=== PATIENT | male | born 1945 | race Caucasian/White ===

== ENCOUNTER 2017-12-24 06:33 | Day surgery (SDC) | payer OTHER, MEDICARE ==
[~2017-12-24 06:33] MED LIST: KETOROLAC TROMETHAMINE 0.45% 4 DROP/0.4 ML DROPERETTE OS PRN
[2017-12-24] MEDS: CYCLOPENTOLATE 0.2%/PHENYLEPHRINE 1% OPH SOLN 2 ML OS PRN ×3 (07:00→07:13)
[2017-12-24] MEDS: BESIFLOXACIN HCL 0.6% OPH SUSP 5 ML BOTTLE OS PRN ×4 (07:00→07:52)
[2017-12-24] MEDS: TROPICAMIDE 1% OPH SOLN 3 ML OS PRN ×3 (07:00→07:13)
[2017-12-24] MEDS: TETRACAINE HCL 0.5% OPH SOLN 2 ML OS PRN ×3 (07:00→07:32)
[2017-12-24] MEDS ORDERED: MIDAZOLAM 2 MG/2 ML INJ ONE (07:13)
[2017-12-24] MEDS: LIDOCAINE 1% INJ-PF (10 MG/ML) 30 ML SDV ONE ×2 (07:42)
[2017-12-24] MEDS: EPINEPHRINE INJ/PF 1 MG/1 ML AMPULE ONE ×2 (07:42)
[2017-12-24] MEDS: CHONDR SU A NA/HYALUR INTRAOC KIT (SURGICARE) ONE ×2 (07:43)
--- NOTE | 2017-12-24 16:26 | [facility] OPERATIVE REPORT E ---
[facility] Operative Report NAME: PILAR BINGHAM AGE: 72Y DATE OF SURGERY: 12/24/2017 ROOM: PREOPERATIVE DIAGNOSIS: CATARACT, LEFT EYE. POSTOPERATIVE DIAGNOSIS: CATARACT, LEFT EYE. OPERATION: Cataract extraction with insertion of an IOL of the left eye. SURGEON: ALEXANDRE HILL M.D. ANESTHESIA: Topical. PROCEDURE: After obtaining appropriate consent, the patient's left eye was prepped and draped in sterile fashion as well as the surgeon in a sterile manner and cataract surgery was started. First a paracentesis blade was used to make a side-port incision. Viscoelastic was used to inflate the anterior chamber. Next a 2.4 mm incision was made with a 2.4 mm blade, clear corneal temporally. A continuous capsulorrhexis was made using a cystotome and Utrata forceps. Following this hydrodissection was carried out to make the lens fully loose and mobile and it was rotated 90 degrees. Following this, a iiwzhb-zti-jfhomcs technique was used to phacoemulsify the lens with a CDE of 5.87. The remaining cortex was removed with irrigation/aspiration. Provisc was instilled into the capsular bag to inflate the bag. A SN60WF, 15.5 diopter lens was placed. The remaining viscoelastic material was removed with irrigation/aspiration. Following this, the incision was found to be watertight. Besivance was instilled into the eye and a protective shield was placed over the eye. The patient returned to the postoperative recovery in stable condition. DICTATING PHYSICIAN: ALEXANDRE HILL M.D. [id number] PHY#: [id number] ID: [id number] JOB#: [id number] ACCT: [id number] cc:ALEXANDRE HILL M.D. >
--- NOTE | 2017-12-24 16:26 | [facility] DISCHARGE SUMMARY E ---
[facility] Discharge Summary NAME: PILAR BINGHAM AGE: 72Y ADMITTED: 12/24/2017 DISCHARGED: 12/24/2017 HOSPITAL COURSE: This is a 72-year-old male who underwent cataract extraction of the left eye. DIAGNOSIS: CATARACT, LEFT EYE. He underwent surgery because he was having difficulty seeing road signs and words on the television. DISCHARGE INSTRUCTIONS: He should be on a regular diet. No bending at his waist, no heavy lifting. He should use his Besivance, Ilevro, and Durezol at 3 p.m. and 8 p.m. and sleep with a rigid shield. I will see him for his 1 day postoperative tomorrow. DICTATING PHYSICIAN: ALEXANDRE HILL M.D. [id number] PHY#: [id number] ID: [id number] JOB#: [id number] ACCT: [id number] cc:ALEXANDRE HILL M.D. >
== END 2017-12-24 08:34 | disposition home or self-care (01) ==
LOC: SC 06:33
PROVIDERS: ATTEND Internal Medicine
DX: H25.813 Combined forms of age-related cataract, bilateral (principal); H40.1132 Primary open-angle glaucoma, bilateral, moderate stage; E11.9 Type 2 diabetes mellitus without complications; M19.90 Unspecified osteoarthritis, unspecified site; I51.9 Heart disease, unspecified; Z79.84 Long term (current) use of oral hypoglycemic drugs; Z79.82 Long term (current) use of aspirin; Z95.0 Presence of cardiac pacemaker
CPT/HCPCS: 66984; 82962; V2632; J2250; J3490 ×2; J0171; 142

== ENCOUNTER 2018-01-14 10:04 | Day surgery (SDC) | payer OTHER, MEDICARE ==
[~2018-01-14 10:04] MED LIST changes: +KETOROLAC TROMETHAMINE 0.45% 4 DROP/0.4 ML DROPERETTE OD PRN; -KETOROLAC TROMETHAMINE 0.45% 4 DROP/0.4 ML DROPERETTE OS PRN; +MIDAZOLAM 2 MG/2 ML INJ ONE
[2018-01-14] MEDS ORDERED: LIDOCAINE 1% INJ-PF (10 MG/ML) 30 ML SDV ONE (10:26)
[2018-01-14] MEDS ORDERED: EPINEPHRINE INJ/PF 1 MG/1 ML AMPULE ONE (10:26)
[2018-01-14] MEDS ORDERED: CHONDR SU A NA/HYALUR INTRAOC KIT (SURGICARE) ONE (10:26)
[2018-01-14] MEDS: TROPICAMIDE 1% OPH SOLN 3 ML OD PRN ×3 (10:54→11:14)
[2018-01-14] MEDS: BESIFLOXACIN HCL 0.6% OPH SUSP 5 ML BOTTLE OD PRN ×4 (10:54→11:53)
[2018-01-14] MEDS: CYCLOPENTOLATE 0.2%/PHENYLEPHRINE 1% OPH SOLN 2 ML OD PRN ×3 (10:54→11:14)
[2018-01-14] MEDS: TETRACAINE HCL 0.5% OPH SOLN 2 ML OD PRN ×3 (10:55→11:33)
--- NOTE | 2018-01-14 20:05 | [facility] DISCHARGE SUMMARY E ---
[facility] Discharge Summary NAME: PILAR BINGHAM AGE: 72Y ADMITTED: 01/14/2018 DISCHARGED: 01/14/2018 HOSPITAL COURSE: This is a 72-year-old male who underwent cataract extraction of the right eye. DIAGNOSIS: CATARACT, RIGHT EYE. He underwent surgery because he was having difficulty seeing words on the television. DISCHARGE INSTRUCTIONS: He should be on a regular diet. No bending at his waist, no heavy lifting. He should use his Besivance, Ilevro, and Durezol at 3 p.m. and 8 p.m. and sleep with a rigid shield. I will see him for his 1 day postoperative tomorrow. DICTATING PHYSICIAN: ALEXANDRE HILL M.D. [id number] PHY#: [id number] ID: [id number] JOB#: [id number] ACCT: [id number] cc:ALEXANDRE HILL M.D. >
--- NOTE | 2018-01-14 20:05 | [facility] OPERATIVE REPORT E ---
[facility] Operative Report NAME: PILAR BINGHAM AGE: 72Y DATE OF SURGERY: 01/14/2018 ROOM: PREOPERATIVE DIAGNOSIS: CATARACT, RIGHT EYE. POSTOPERATIVE DIAGNOSIS: CATARACT, RIGHT EYE. OPERATION: Cataract extraction with insertion of an IOL of the right eye. SURGEON: ALEXANDRE HILL M.D. ANESTHESIA: Topical. PROCEDURE: After obtaining appropriate consent, the patient's right eye was prepped and draped in sterile fashion as well as the surgeon in a sterile manner and cataract surgery was started. First a paracentesis blade was used to make a side-port incision. Viscoelastic was used to inflate the anterior chamber. Next a 2.4 mm incision was made with a 2.4 mm blade, clear corneal temporally. A continuous capsulorrhexis was made using a cystotome and Utrata forceps. Following this hydrodissection was carried out to make the lens fully loose and mobile and it was rotated 90 degrees. Following this, a pizngo-bgp-qdmxnta technique was used to phacoemulsify the lens with a CDE of 14.90. The remaining cortex was removed with irrigation/aspiration. Provisc was instilled into the capsular bag to inflate the bag. A SN60WF, 15.5 diopter lens was placed. The remaining viscoelastic material was removed with irrigation/aspiration. Following this, the incision was found to be watertight. Besivance was instilled into the eye and a protective shield was placed over the eye. The patient returned to the postoperative recovery in stable condition. DICTATING PHYSICIAN: ALEXANDRE HILL M.D. [id number] PHY#: [id number] ID: [id number] JOB#: [id number] ACCT: [id number] cc:ALEXANDRE HILL M.D. >
== END 2018-01-14 12:40 | disposition home or self-care (01) ==
LOC: SC 10:04
PROVIDERS: ATTEND Internal Medicine
DX: H25.811 Combined forms of age-related cataract, right eye (principal); Z96.1 Presence of intraocular lens; H40.1132 Primary open-angle glaucoma, bilateral, moderate stage; E11.9 Type 2 diabetes mellitus without complications; Z79.84 Long term (current) use of oral hypoglycemic drugs; Z79.899 Other long term (current) drug therapy; Z79.82 Long term (current) use of aspirin; Z95.0 Presence of cardiac pacemaker
CPT/HCPCS: 66984; 82962; V2632; J2250; J3490 ×2; J0171; 142

== ENCOUNTER 2020-01-07 19:47 | Emergency (ER) | payer OTHER, MEDICARE ==
--- NOTE | 2020-01-07 20:11 | ER Document Report ---
ED Medical Screen (RME) - General Chief Complaint: Head Injury without LOC Stated Complaint: HEAD INJURY Time Seen by Provider: 01/07/20 20:03 Primary Care Provider: DYAN CRONIN MD [Primary Care Provider] - Follow up as needed Mode of Arrival: Wheelchair Information source: Patient Notes: 74-year-old male presented to ED for complaint of pain to the face both knees left hand and fifth toe on the left foot. He states he was temporarily started about 6 PM when he fell landing face first on the driveway. He states he has fallen before face forward when he was carried out across the yard. He is alert oriented respirations regular nonlabored. He does state he has a pacemaker history of diabetes PTSD. He was unsure the rest of his medical history. He denies loss of consciousness. I have greeted and performed a rapid initial assessment of this patient. A comprehensive ED assessment and evaluation of the patient, analysis of test results and completion of medical decision making process will be conducted by an additional ED providers. TRAVEL OUTSIDE OF THE [place] IN LAST 30 DAYS: No - Related Data Allergies/Adverse Reactions: No Known Allergies Allergy (Verified 01/07/20 20:07) Past Medical History - Past Medical History Cardiac Medical History: Reports: None Pulmonary Medical History: Reports: None EENT Medical History: Reports: None Neurological Medical History: Reports: None Endocrine Medical History: Reports: Hx Diabetes Mellitus Type 2 Renal/ Medical History: Reports: None GI Medical History: Reports: None Musculoskeltal Medical History: Reports Hx Arthritis, Reports Hx Musculoskeletal Trauma Skin Medical History: Reports None Psychiatric Medical History: Reports: Hx Depression, Hx Post Traumatic Stress Disorder Traumatic Medical History: Reports: Hx Fractures Infectious Medical History: Reports: None Past Surgical History: Reports: Hx Pacemaker, Hx Tonsillectomy - Immunizations Hx Diphtheria, Pertussis, Tetanus Vaccination: Yes Physical Exam - Vital signs Vitals: Temp Pulse Resp BP Pulse Ox 97.3 F 70 16 111/57 L 97 01/07/20 19:54 01/07/20 19:54 01/07/20 19:54 01/07/20 19:54 01/07/20 19:54 Course - Vital Signs Vital signs: Temp Pulse Resp BP Pulse Ox 97.3 F 70 16 111/57 L 97 01/07/20 19:54 01/07/20 19:54 01/07/20 19:54 01/07/20 19:54 01/07/20 19:54 Doctor's Discharge - Discharge Referrals: DYAN CRONIN MD [Primary Care Provider] - Follow up as needed
--- NOTE | 2020-01-07 20:46 | RADIOLOGY REPORT (SQ) ---
CT BRAIN AND CERVICAL SPINE HISTORY: Trauma. COMPARISON: 04/20/2015 TECHNIQUE: CT scan of the brain and cervical spine was performed without IV contrast. This exam was performed according to our departmental dose-optimization program, which includes automated exposure control, adjustment of the mA and/or kV according to patient size and/or use of iterative reconstruction technique. FINDINGS: BRAIN: There are scattered areas of hypoattenuation within the periventricular white matter, which likely represent chronic microvascular ischemia. No evidence of acute infarction, intracranial hemorrhage, extra-axial fluid collection, or midline shift. No air-fluid levels are seen in the paranasal sinuses to suggest acute sinusitis. No depressed skull fracture. CERVICAL SPINE: No acute cervical fracture or prevertebral soft tissue swelling. There is straightening of the normal cervical lordosis, which may be due to cervical collar, muscle spasm, or patient positioning. There is mild multilevel degenerative disc disease as well as facet DJD throughout the cervical spine. The spinal canal is poorly visualized IMPRESSION: 1. No acute intracranial hemorrhage. 2. No acute fracture or subluxation of the cervical spine.
--- NOTE | 2020-01-07 20:54 | RADIOLOGY REPORT (SQ) ---
CLINICAL INDICATION: fall landed on driveway pain left 5th toe. . TECHNIQUE: 3 view(s) obtained of the left. COMPARISON: None. FINDINGS: No acute displaced fracture is identified. Alignment appears anatomic. Joint spaces are within normal limits for age. Soft tissue swelling. IMPRESSION: No acute displaced fracture is identified.
--- NOTE | 2020-01-07 20:55 | RADIOLOGY REPORT (SQ) ---
CLINICAL INDICATION: fall landed on driveway pain left hand. . TECHNIQUE: 3 view(s) were obtained of the left hand. COMPARISON: April 20, 2015. FINDINGS: No acute displaced fracture is identified of the hand. Alignment appears anatomic. Osteoarthritis most prominent base of first metacarpal.. Soft tissue swelling. IMPRESSION: No evidence of acute bony injury to the hand. Osteoarthritis
--- NOTE | 2020-01-07 20:59 | RADIOLOGY REPORT (SQ) ---
CLINICAL INDICATION: fall landed on driveway pain bilateral knee. . TECHNIQUE: 4 view(s) were obtained of the left knee. COMPARISON: None. FINDINGS: No acute displaced fracture is identified of the knee. Alignment appears anatomic. Joint spaces are within normal limits for age. No significant joint effusion. Soft tissue swelling. Vascular calcification. IMPRESSION: No evidence of acute displaced fracture of the knee.
--- NOTE | 2020-01-07 21:00 | RADIOLOGY REPORT (SQ) ---
CLINICAL INDICATION: fall landed on driveway pain bilateral knee. . TECHNIQUE: 4 view(s) were obtained of the right knee. COMPARISON: None. FINDINGS: No acute displaced fracture is identified of the knee. Alignment appears anatomic. Joint spaces are within normal limits for age. No significant joint effusion. Soft tissue swelling. Vascular calcification. IMPRESSION: No evidence of acute displaced fracture of the knee.
[2020-01-08 00:33] LABS: ABSOLUTE BASOPHILS # (AUTO) 0.1 10^3/uL (0.0-0.2); ABSOLUTE EOSINOPHILS # (AUTO) 0.2 10^3/uL (0.0-0.6); ABSOLUTE LYMPHOCYTES (AUTO) 1.6 10^3/uL (0.5-4.7); ABSOLUTE MONOCYTES (AUTO) 0.5 10^3/uL (0.1-1.4); ABSOLUTE NEUT (AUTO) 4.3 10^3/uL (1.7-8.2); BASOPHILS % (AUTO) 0.8 % (0-2); EOSINOPHILS % (AUTO) 2.3 % (0-6); HEMATOCRIT 39.9 % (37.9-51.0); HEMOGLOBIN 13.7 g/dL (13.5-17.0); LYMPHOCYTES % (AUTO) 23.7 % (13-45); MEAN CORPUSCULAR HEMOGLOBIN 31.4 pg (27.0-33.4); MEAN CORPUSCULAR HGB CONC 34.2 g/dL (32.0-36.0); MEAN CORPUSCULAR VOLUME 92 fl (80-97); MONOCYTES % (AUTO) 7.5 % (3-13); PLATELET COUNT 159 10^3/uL (150-450); RED BLOOD COUNT 4.36 10^6/uL (4.35-5.55); RED CELL DISTRIBUTION WIDTH 13.9 % (11.5-14.0); SEGMENTED NEUTROPHILS % (AUTO) 65.7 % (42-78); TOTAL CELLS COUNTED % (AUTO) 100 %; WHITE BLOOD COUNT 6.6 10^3/uL (4.0-10.5)
[2020-01-08 00:40] LABS: ALBUMIN 4.1 g/dL (3.5-5.0); ALKALINE PHOSPHATASE 63 U/L (38-126); ANION GAP 9 (5-19); ASPARTATE AMINO TRANSFERASE 25 U/L (17-59); BILIRUBIN,TOTAL 0.8 mg/dL (0.2-1.3); BLOOD UREA NITROGEN 30 mg/dL (7-20); CARBON DIOXIDE 24 mmol/L (22-30); CHLORIDE 105 mmol/L (98-107); POTASSIUM 4.1 mmol/L (3.6-5.0); TOTAL PROTEIN 6.4 g/dL (6.3-8.2)
[2020-01-08 00:51] LABS: GLUCOSE 47 mg/dL (75-110)
[2020-01-08] MEDS ORDERED: ACETAMINOPHEN 325 MG TABLET PO ONE (00:56)
--- NOTE | 2020-01-08 01:11 | ER Document Report ---
ED General - General Chief Complaint: Head Injury without LOC Stated Complaint: HEAD INJURY Time Seen by Provider: 01/07/20 20:03 Primary Care Provider: DYAN CRONIN MD [Primary Care Provider] - Follow up as needed Mode of Arrival: Wheelchair Notes: [age]-year-old male with past medical history of diabetes, glaucoma, pacemaker due to slow heart rate presents after falling while he was trying to change his car tire. States that he was bending over felt he lost his balance and states that he hit his head. He states that he did not lose consciousness. His any head pain, head ache, facial pain, neck pain, chest pain, abdominal pain. States he has some little bit of pain on his left knee and his left pinky toe. Takes aspirin. States that since he has been transitioned from metformin to a glypizde that he becomes light headed more often. States he believes his sugar is low as he hasn't eaten since this morning. TRAVEL OUTSIDE OF THE [place] IN LAST 30 DAYS: No - Related Data Allergies/Adverse Reactions: No Known Allergies Allergy (Verified 01/07/20 20:07) Past Medical History - General Information source: Patient - Social History Smoking Status: Former Smoker Frequency of alcohol use: None Drug Abuse: None Family History: Reviewed & Not Pertinent Patient has homicidal ideation: No - Past Medical History Cardiac Medical History: Reports: None Denies: Hx Heart Attack, Hx Hypertension Pulmonary Medical History: Reports: None Denies: Hx Asthma EENT Medical History: Reports: None Neurological Medical History: Reports: None. Denies: Hx Seizures Endocrine Medical History: Reports: Hx Diabetes Mellitus Type 2 Renal/ Medical History: Reports: None GI Medical History: Reports: None. Denies: Hx Hiatal Hernia, Hx Ulcer Musculoskeletal Medical History: Reports Hx Arthritis, Reports Hx Musculoskeletal Trauma Skin Medical History: Reports None Psychiatric Medical History: Reports: Hx Depression, Hx Post Traumatic Stress Disorder Traumatic Medical History: Reports: Hx Fractures Infectious Medical History: Reports: None Past Surgical History: Reports: Hx Cardiac Surgery - Pacemaker, Hx Pacemaker, Hx Tonsillectomy. Denies: Hx Open Heart Surgery - Immunizations Hx Diphtheria, Pertussis, Tetanus Vaccination: Yes Review of Systems - Review of Systems Constitutional: See HPI Physical Exam - Vital signs Vitals: Temp Pulse Resp BP Pulse Ox 97.3 F 70 16 111/57 L 97 01/07/20 19:54 01/07/20 19:54 01/07/20 19:54 01/07/20 19:54 01/07/20 19:54 Interpretation: Normal - Notes Notes: Adult General: GENERAL: Alert, interacts well. No acute distress HEAD: Normocephalic, atraumatic EYES: Pupils equal, round and reactive to light. Extraocular movements intact. ENT: Oral mucosa moist, tongue midline. Oropharynx unremarkable. Airway patent. Nares patent, sinuses nontender, ear canals unremarkable, TMs intact. No Trismus. NECK: Full range of motion. Supple. Trachea midline. No lymphadenopathy. LUNGS: Clear to auscultation bilaterally, no wheezes, rales, or rhonchi. No respiratory distress. Nontender chest wall. HEART: Regular rate and rhythm. No murmurs, rubs or gallops. ABDOMEN: Soft, nontender. Nondistended. Bowel sounds present in all 4 quadrants. No rebound, guarding or masses. GENITOURINARY: Deferred EXTREMITIES: ttp along subpatella, left 5th toe is tender to palpation. Moves all 4 extremities spontaneously. No edema, normal radial and dorsal pedis pulses bilaterally. No cyanosis. BACK: No cervical, thoracic, lumbar midline tenderness. No saddle anesthesia, normal distal neurovascular exam. Moves all extremities with full range of motion. NEUROLOGICAL: Alert and oriented x3. Normal speech. Cranial nerves II through XII grossly intact. Strength 5/ 5 in all extremities. PSYCH: Normal affect, normal mood. SKIN: Warm, dry, normal turgor. Abrasion above left eye brow, abrasion left wrist, contusion left hand. Course - Re-evaluation Re-evalutation: 01/08/20 01:11 He denies any headaches, facial pain. I thoroughly palpated his head and face and there is no tenderness or crepitus or step-offs. His CT scan shows no acute bleeds or fractures. His x-rays of his hand, bilateral knees and toe also show no fractures. CBC and CMP was drawn because he says he is occasionally been weak. His CBC shows that his blood sugar is 47, and he also has an elevated creatinine at 1.8. I discussed this with the patient and I recommend that he follows up with his primary care to discuss possibly changing his diabetes medication, to monitor his creatinine levels and for follow-up from his fall. His son is in the room and he is frustrated and wants to know what his father can leave. I discussed with him that the radiological studies are reassuring but need to ensure that his blood sugar elevates. Once this can be rechecked in about 15 minutes and if it is above 70 we will discharge the patient. 01/08/20 02:19 Blood sugar is 124. Will discharge patient - Vital Signs Vital signs: Temp Pulse Resp BP Pulse Ox 97.5 F 70 20 117/54 L 92 01/08/20 02:37 01/08/20 02:37 01/08/20 02:37 01/08/20 02:37 01/08/20 02:37 - Laboratory Result Diagrams: 01/08/20 00:15 01/08/20 00:15 Laboratory results interpreted by me: 01/08/20 01/08/20 00:15 02:15 BUN 30 H Creatinine 1.81 H Est GFR ( Amer) 45 L Est GFR (MDRD) Non-Af 37 L Glucose 47 L POC Glucose 124 H Discharge - Discharge Clinical Impression: Elevated serum creatinine, Hypoglycemia Fall Qualifiers: Encounter type: initial encounter Qualified Code(s): W19.XXXA - Unspecified fall, initial encounter Condition: Stable Disposition: HOME, SELF-CARE Additional Instructions: Your imaging done today is unremarkable. Please follow-up with your primary care to monitor your elevated creatinine noted on today's work-up. Please also discuss with your primary care provider that you are becoming lightheaded and dizzy intermittently since you have been changed to glipizide. Please return to the emergency department if you have worsening symptoms or development of new symptoms. You may use Tylenol for pain relief. Referrals: DYAN CRONIN MD [Primary Care Provider] - Follow up as needed
[2020-01-08 02:38] VITALS: BP 117/54
== END 2020-01-08 02:44 | disposition home or self-care (01) ==
LOC: ER 19:47
DX: S09.90XA Unspecified injury of head, initial encounter (principal); R42 Dizziness and giddiness; R79.89 Other specified abnormal findings of blood chemistry; W19.XXXA Unspecified fall, initial encounter; E11.9 Type 2 diabetes mellitus without complications; H40.9 Unspecified glaucoma; Z95.0 Presence of cardiac pacemaker; Z79.84 Long term (current) use of oral hypoglycemic drugs; Z87.891 Personal history of nicotine dependence
CPT/HCPCS: 36415; 70450; 72125; 80053; 82962; 85025; 99284